=== PATIENT | male | born 1995 | race Caucasian/White ===

== ENCOUNTER → 2017-06-13 | Outpatient (CLI) | payer OTHER ==
[2017-06-13 09:31] LABS: HEMATOCRIT 45.3 % (42-52); MEAN CORPUSCULAR HEMOGLOBIN 30.4 pg (25-34); MEAN CORPUSCULAR HGB CONC 36.2 g/dl (32-36); MEAN PLATELET VOLUME 8.5 fL (7.4-10.4); PLATELET COUNT 273 K/uL (130-400); RED BLOOD COUNT 5.39 M/uL (4.7-6.1); WHITE BLOOD COUNT 5.03 K/uL (4.8-10.8)
[2017-06-13 09:50] LABS: BLOOD UREA NITROGEN 15 mg/dl (7-18); CREATININE 0.94 mg/dl (0.60-1.40); GLUCOSE 92 mg/dl (70-99)
[2017-06-13 09:51] LABS: ALT/SGPT 31 U/L (12-78); BUN/CREATININE RATIO 16.2 (10-20); CALCIUM 9.4 mg/dl (8.5-10.1); CARBON DIOXIDE 31 mmol/L (21-32); CHLORIDE 103 mmol/L (98-107); CHOLESTEROL 216 mg/dl (0-200); POTASSIUM 4.1 mmol/L (3.5-5.1); SODIUM 138 mmol/L (136-145)
[2017-06-13 10:01] LABS: ALB/GLOB RATIO 1.4 (0.9-2); ALKALINE PHOSPHATASE 101 U/L (45-117); AST/SGOT 23 U/L (15-37); CHOLESTEROL/HDL RATIO 4.1; HDL CHOLESTEROL 53 mg/dl; LDL CHOLESTEROL CALCULATED 151 mg/dl; TRIGLYCERIDES 60 mg/dl (0-150); VERY LOW DENSITY LIPOPROT CALC 12 mg/dl
[2017-06-13 10:04] LABS: BASO ABS # 0.18 K/uL (0-0.2); BASOPHIL % 3.5 % (0-2); COMPLETE YES; EOSINOPHIL % 4.3 %; LYMPH ABS # 1.93 K/uL (1.2-3.4); LYMPHOCYTE % 38.3 %; VARIANT LYM ABS # 0.79 K/uL; VARIANT LYMPHOCYTE % 15.7 %
== END | disposition home or self-care (01) ==
LOC: C.LAB 08:50
PROVIDERS: ATTEND Internal Medicine
DX: Z00.00 Encounter for general adult medical examination without abnormal findings (principal)